=== PATIENT | female | born 1950 | race Caucasian/White ===

== ENCOUNTER → 2016-11-26 | Outpatient (CLI) | payer MEDICARE, OTHER ==
[~2016-11-26] MED LIST: ASPIRIN EC81 MG PO; BIOTIN2500 MCG PO; CALCIUM 600 +1 EAC6 PO; CO Q-10200 MG PO; COZAAR100 MG PO; FISH OIL 1,2001 EAC1 PO; LEVOTHROID (SY88 MCG PO; LIPITOR40 MG PO; NORCO 5-325 MG1 TAB PO; NORVASC10 MG PO; NOVOLOG100 UNIT/M SUB-Q; PRAVACHOL40 MG PO; RESTASIS1 EACH OPHTH; THERAGRAN-M1 TAB PO; TOPROL XL25 MG PO; TYLENOL EXTRA500 MG PO; XARELTO20 MG PO
== END | disposition disaster alternative care site (69) ==
LOC: GCAR 08:53
DX: H34.9 Unspecified retinal vascular occlusion (principal); I65.23 Occlusion and stenosis of bilateral carotid arteries

== ENCOUNTER → 2017-02-28 | Outpatient (CLI) | payer MEDICARE, OTHER ==
--- NOTE | ~2017-02-28 | ESTC ---
Cardiac Perfusion Imaging Demographics Patient Name TALYA Root Gender Female Patient Number [id number] Race Visit Number [id number] Ethnicity [employer] ID Room Number Accession Number [id number] Height 61 inches Date of 1950 Weight 125 pounds Interpreting Jose M Montiel Date of study 02/28/2017 Physician Supervising /GAGAN Montiel NM Technologist Stefany Caldwell MD Ordering Physician Stress psychiatric technician Stress ECG Reading Jose M Montiel Nurse Kelsea Crystal Physician RN Alexis New RN Procedure Procedure Type: Nuclear Stress Test:Exercise, Cardiolite Stress Test Procedure Start time: 02/28/2017 09:15 Indications: Chest pain. Risk Factors The patient risk factors include:physical activity, former tobacco use, hypertension, family history of premature CAD, insulin treated diabetes mellitus and dyslipidemia. Conclusions Summary DTS : -3 (Moderate risk). TID present. Normal perfusion images. LVEF: 77%. Normal WM. Stress Protocols Resting ECG RSR. Frequent PVCs with bigeminal rythm intermittently. Pre-stress physical exam: Un changed. Predicted HR: 153 bpm ECG Findings Positive for ischemia. Arrhythmias PVCs and bigeminal rythm as above. Symptoms No chest pain. SOB. Stress Interpretation Duration: 7 mins. Achieved: 98% MPHR. DP: 23 K. METs: 8:5 No chest pain. Reason for termination: SOB. EKG: Positive for ischemia-[address] depression in V5. No new arrythmias. DTS: -3 (Moderate risk). Imaging Results Applied corrections - Motion correction applied High risk findings Summed scores - LV dilatation (TID) : 1.24 - Summed stress score: 9 - Summed rest score: 0 - Summed difference score: 9 Stress ejection Ejection fraction:77 % EDV :75 ml ESV :17 ml Stroke volume :58 ml LV mass :108 gr LV size:Normal Normal LV function Imaging Protocols Rest Stress Isotope:Tc99m Sestamibi IV Isotope: Tc99m Sestamibi IV Isotope dose:11 mCi Isotope dose:31.2 mCi Date:02/28/2017 07:30 Date:02/28/2017 09:43 Technique: SPECT Technique: Gated Supine SPECT Supine Medical History Admission Data Admission date: 02/28/2017 Admission Time: 06:57 Hospital Status: Outpatient. Signatures dtt: Tiana Salguero dtd: 02/28/17 0915 Physician Self Edit
== END | disposition disaster alternative care site (69) ==
LOC: GRAD 06:57
DX: R06.02 Shortness of breath (principal); I10 Essential (primary) hypertension; E11.9 Type 2 diabetes mellitus without complications; E78.5 Hyperlipidemia, unspecified; Z82.49 Family history of ischemic heart disease and other diseases of the circulatory system; Z87.891 Personal history of nicotine dependence
CPT/HCPCS: A9500

== ENCOUNTER → 2017-03-13 | Outpatient (CLI) | payer MEDICARE, OTHER ==
[2017-03-13 17:24] LABS: BASOPHIL % 0.3 %; EOSINOPHIL # 0.7 K/uL (0.0-0.5); HEMATOCRIT 38.4 % (33.0-46.0); HEMOGLOBIN 12.8 g/dL (10.0-15.0); IMMATURE GRANULOCYTE % 0.2 %; LYMPHOCYTE # 2.8 K/uL (0.8-4.0); LYMPHOCYTE % 29.7 %; MCH 29.5 pg (27.0-34.0); MCHC 33.3 gm/dL (32.0-36.5); MCV 88.5 fl (83.0-98.0); MONOCYTE # 0.9 K/uL (0.0-1.0); MONOCYTE % 9.7 %; MPV 11.7 fl (9.4-12.4); NEUTROPHIL % 53.1 %; NRBC % 0 /100WBC (0-0.00); PLATELET COUNT 291 K/uL (150-450); RDW-CV 14.2 % (11.9-14.6); WBC 9.4 K/uL (4.0-11.0)
[2017-03-13 17:31] LABS: RBC 4.34 M/uL (3.50-5.50)
[2017-03-13 17:35] LABS: ALBUMIN 4.1 gm/dL (3.5-5.0); ANION GAP 13.4 (10.0-19.0); CALCIUM 9.7 mg/dL (8.5-10.5); CREATININE 1.2 mg/dL (0.5-1.1); PHOSPHORUS 2.8 mg/dL (2.5-4.9); POTASSIUM 3.4 mMol/L (3.7-5.1)
== END ==
LOC: LGSOS 16:54
PROVIDERS: Internal Medicine Interventional Cardiology
DX: I48.0 Paroxysmal atrial fibrillation (principal)

== ENCOUNTER 2017-03-21 06:17 | Outpatient (CLI) | payer MEDICARE, OTHER ==
[~2017-03-21] VITALS: Ht 154.9 cm; Wt 55.1 kg
--- NOTE | ~2017-03-21 | CATH ---
Cardiac Diagnostic Report Demographics Patient Name TALYA Root Gender Female Date of 1950 Age 66 year(s) Patient Number [id number] Date of Study 03/21/2017 Visit Number [id number] Room Number G[address] [place] [id number] Ht 154.94 cm Wt 55.1 kg Referring Ashley Root MD Primary Physician Physician Performing Jose M Secondary Physician Physician Tiana BRAXTON Diagnostic Jose M Assisting Physician Physician Tiana BRAXTON Interventional Physician Cotton Sampler Physician Findings and Conclusions Diagnostic Findings and Conclusion Calcification involving proximal coronaries. Normal LVEDP 9. Mild CAD Diagnostic Recommendations Aggressive secondary prevention measures Procedure Description The patient was brought to the diagnostic cardiac catheterization-EP laboratory in the fasting, non-sedated state. Informed consent was obtained in the written and verbal form after the risks and benefits were explained. The patient had no further questions and agreed to proceed. The planned puncture-incision site(s) were shaved and prepped with ChloraPrep and draped in the usual sterile manner. Conscious sedation, supplemental oxygen, and pain control medications were delivered by a registered nurse under physician guidance. Surface ECG rhythm, blood pressure measurement, and pulse oximetry were monitored throughout the procedure. Arterial access. The access site was infiltrated with lidocaine. The vessel was entered with the Seldinger technique. A sheath was advanced into the vessel and used for catheter placement. Selective left coronary angiography. A catheter was advanced into the left coronary vessel ostium under Fluoroscopic guidance. Contrast was injected by hand. Images were obtained in multiple projections. Selective right coronary angiography. A catheter was advanced into the right coronary vessel ostium under fluoroscopic guidance. Contrast was injected by hand. Images were obtained in multiple projections. Left heart catheterization. A catheter was advanced across the aortic valve to the left ventricle under fluoroscopic guidance. Resting hemodynamics were obtained. Arterial artery hemostasis was achieved. The patient was transferred to a regular nursing floor via cart accompanied by a nurse. The patient left the laboratory in stable condition. Diagnostic Cath Status: Elective Procedure Procedure Type Diagnostic procedure:Angiography:, Coronary Angios w/[facility] Indications: Shortness of breath and Abnormal stress perfusion study. The procedure was explained in detail to the patient. Risks, complications and alternative treatments were reviewed. Written consent was obtained. Medications Reviewed with Patient prior to Procedure. Angiographic Findings Dominance: Right Cardiac Arteries and Lesion Findings LMCA: Abnormal.Luminal irregularities LAD: Abnormal.Type 3 Lesion on Prox LAD: 25% stenosis . Lesion on Mid LAD: 25% stenosis . LCx: Abnormal.Luminal irregularities RCA: Abnormal. Lesion on Prox RCA: Ostial.40% stenosis . Lesion on Mid RCA: 25% stenosis . Coronary Tree Procedure Data Procedure Date Date: 03/21/2017Start: 08:32 AMEnd: 09:05 AM Entry Locations - Retrograde Percutaneous access was performed through the Right Femoral artery (Primary location). A 7 Fr sheath was inserted. Hemostasis was successfully obtained using Angio-Seal STS PLUS ([place]). Closure Comments: Maude. Procedure Medications Order and Administration + + +-------+------+ !Time !Medication !Dosage !Route ! + + +-------+------+ !03/21/2017 08:25 AM !Versed !0.5 mg !I.V. ! + + +-------+------+ 03/21/2017 08:27 AM !Fentanyl !25 mcg !I.V. ! + + +-------+------+ 03/21/2017 08:29 AM !Versed !0.5 mg !I.V. ! + + +-------+------+ Devices Used - A6 Fr. BS JR 4 Diag. Catheterwas used for:Right coronary angiography. - A6 Fr. BS JL 4 Diag. Catheterwas used for:Left coronary angiography. Contrast Material - Isovue 80224 ml Fluoroscopy Time: Diagnostic: 4:24 minutes. Total: 4:24 minutes. Fluoroscopy Dose: Diagnostic: 695 mGy. Total: 695 mGy. Estimated Blood Loss: 15 ml. Medical History Performed Procedures and Imaging Results - Stress testing with SPECT MPIwas performed on 02/28/2017. Results were: Positive. Risk/Extent of ischemia was: Intermediate risk. Allergies - No known allergies. Risk Factors The patient risk factors include:hypertension, family history of premature CAD, insulin-treated diabetes mellitus, dyslipidemia and former tobacco use. Admission Data Admission Date: 03/21/2017 Admission Time: 06:17 AM Admit Source: Other Insurance Payors: Medicare. Admission Medications + +------+------+ + + + + !Medication !Dosage!Times !Last !Last !Administered !Comments ! ! ! !Per !Delivery !Delivery ! ! ! ! ! !Day !Date !Time ! ! ! + +------+------+ + + + + !Aspirin ! ! ! ! !Yes ! ! !(any) ! ! ! ! ! ! ! + +------+------+ + + + + !Beta ! ! ! ! !Yes ! ! !Beatrice ! ! ! ! ! ! ! !(any) ! ! ! ! ! ! ! + +------+------+ + + + + !Statin ! ! ! ! !Yes ! ! !(any) ! ! ! ! ! ! ! + +------+------+ + + + + Clinical Evaluation Leading to Procedure - The patient's CAD presentation was assessed as: Unstable angina. - The patient's anginal syndrome during the past two weeks was assessed as: Class II according to the [place] Cardiovascular Society Classification System (CCS). Anti-anginal medications were prescribed during the past two weeks. The medications are: Beta Blockers and Long Acting Nitrates. Hemodynamics Condition: Rest O2 Consumption: Estimated: 139.99Heart Rate: 66 bpm Pressures (mmHg) +-----+ + !Site !Pressure ! +-----+ + !LV !131/0 ,10 ! +-----+ + !LV !132/0 ,10 ! +-----+ + !AO !133/48 (83) ! +-----+ + !LV !131/0 ,11 ! +-----+ + !AO !125/40 (74) ! +-----+ + Valve Gradients and Areas + +---------+---------+---------+ +---------+ + !Valve !Peak !Mean !Area !Index !Flow !Source ! + +---------+---------+---------+ +---------+ + !Aortic !0 !0 ! ! ! ! ! + +---------+---------+---------+ +---------+ + !Aortic !0 !0 ! ! ! ! ! + +---------+---------+---------+ +---------+ + Shunts Oxygen Values O2 Consumption 139.99 Discharge Data Discharge Date: 03/21/2017 Hospital Status: Outpatient Signatures dtt: Tiana Salguero dtd: 03/21/17 0832 Physician Self Edit
--- NOTE | ~2017-03-21 | ECHO ---
Transthoracic Echocardiography Report (TTE) Demographics Patient Name KAMILA BABIN Date of Study 03/21/2017 Patient Number [id number] Visit Number [id number] Date of 1950 Room Number G6399 Gender Female Number Age 66 year(s) Referring Jose M Montiel Finished Cig[employer] Ysabel Alcantara [facility], Physician MD STARRT Moriah Lara Physician Interpreting Jose M Montiel Ruffler Physician Supervising Ordering MD/MLP Physician Nurse Stress Plasma Center Technician Conclusions Summary The estimated left ventricular ejection fraction is 60-65% with normal WM,internal dimension and wall thickness. The left atrium is severely dilated by LA volume index measurement. Mild mitral regurgitation by color Doppler. Mild aortic sclerosis. Trivial TR. Procedure Type of Study TTE procedure:2D Echocardiogram. Procedure Date Date: 03/21/2017 Start: 01:15 PM Study Location: Inpatient Portable Technical Quality: Adequate visualization Indications:Dyspnea/SOB. Additional Indications:post cath Appropriate Use Criteria: 9 Patient Status: Routine Rhythm: Within normal limits HR: 63 bpm BP: 155/55 mmHg Allergies - No known allergies. M-Mode/2D Measurements LV Diastolic Dimension: 4.95 cm LV Systolic Dimension: 2.74 cm LV Septum Diastolic: 0.71 cm LV Septum Systolic: 2.91 cm LV PW Diastolic: 0.88 cm AO Root Dimension: 2.1 cm Cardiac Output: 7.06 l/min AV Cusp Separation: 1.4 cm RV Diastolic Dimension: 2.03 cm LA volume: 93 ml IVC Inspiration: 0.99 cm LVOT: 2 cm RV Base: 3.75 cm LVOT VTI: 35.7 cm RV Mid: 3.24 cm LV Stroke volume: 112.1 ml TAPSE: 2.08 cm TDI-S': 15 cm/s Doppler Measurements AV Peak Velocity: 1.93 m/s MV Peak E-Wave: 0.97 m/s AV Peak Gradient: 14.9 mmHg MV Peak A-Wave: 1.24 m/s AV Mean Gradient: 7 mmHg MV E/A Ratio: 0.78 LVOT Peak Velocity: 1.23 m/s MV P1/2t: 31 msec TR Gradient:30.03 mmHg PV Peak Velocity: 1.05 m/s Estimated RAP:3 mmHg PV Peak Gradient: 4.41 mmHg Estimated RVSP: 33 mmHg Estimated PASP: 33.03 mmHg E' Septal Velocity: 0.09 m/s A' Septal Velocity: 0.11 m/s E' Lateral Velocity: 0.11 m/s A' Lateral Velocity: 0.16 m/s MV E/E' Ratio: 8.6 Findings Left Ventricle The estimated left ventricular ejection fraction is 60-65% with normal WM,internal dimension and wall thickness. Right Ventricle Normal right ventricle structure and function. Left Atrium The left atrium is severely dilated by LA volume index measurement. Right Atrium Normal right atrial size. Mitral Valve Mild mitral regurgitation by color Doppler. Aortic Valve The aortic valve is mildly sclerotic. Tricuspid Valve Trivial tricuspid regurgitation by color Doppler. Pulmonic Valve No pulmonic valve regurgitation by color Doppler. Pericardial Effusion No evidence of pericardial effusion. Miscellaneous Visualized portions of the aortic root and ascending aorta appear normal in size. Pleural Effusion No evidence of pleural effusion. Signature dtt: Tiana Salguero dtd: 03/21/17 1315 Physician Self Edit
== END 2017-03-21 14:10 | disposition disaster alternative care site (69) ==
LOC: GCAT 06:17 → GPCU 06:17 → GCAT 14:10
PROC: 4A023N7 Measurement of Cardiac Sampling and Pressure, Left Heart, Percutaneous Approach (ICD-10-PCS; principal; 2017-03-21)
PROC: B216YZZ Fluoroscopy of Right and Left Heart using Other Contrast (ICD-10-PCS; 2017-03-21)
DX: I25.110 Atherosclerotic heart disease of native coronary artery with unstable angina pectoris (principal)
CPT/HCPCS: C1760; J1644; J2001; J2250; J3010; J7030